=== PATIENT | female | born 1965 | race Hispanic/Latino ===

== ENCOUNTER 2017-08-27 09:55 | Outpatient (CLI) | payer BC ==
--- NOTE | 2017-08-28 10:44 | Mammography Report ---
BILATERAL DIGITAL AUGMENTED SCREENING MAMMOGRAM with CAD: 08/27/17 09:55:00 CLINICAL: Routine screening. COMPARISON:06/03/16 FINDINGS: Screening views with and without implant displacement demonstrate heterogeneously dense breasts, which may obscure small masses. Bilateral calcifications with benign morphology. 2 biopsy clips in the inner left breast and stable asymmetry at one of the clips. No mass, architectural distortion or suspicious calcifications. Intact subpectoral implants. IMPRESSION: No mammographic evidence of malignancy. BI-RADS CATEGORY: 2 -- Benign RECOMMENDATION: Routine mammographic screening in one year. ACR BI-RADS MAMMOGRAPHIC CODES: 0 = Needs additional imaging evaluation; 1 = Negative; 2 = Benign; 3 = Probably benign; 4 = Suspicious; 5 = Malignant; 6 = Known biopsy-proven malignancy COMMENT: 1. Dense breast tissue, i.e., adenosis, fibrocystic changes, etc., may obscure an underlying neoplasm. 2. Approximately 10% of cancers are not detected with mammography. 3. A negative mammography report should not delay biopsy if a clinically suspicious mass is present. COMMENT: Patient follow-up letters are generated via our [employer] application.
== END 2017-08-27 09:56 | disposition home or self-care (01) ==
LOC: SPVWC 09:55
PROVIDERS: ATTEND Obstetrics & Gynecology
DX: Z12.31 Encounter for screening mammogram for malignant neoplasm of breast (principal); Z98.82 Breast implant status
CPT/HCPCS: 77067; G0202

== ENCOUNTER 2019-06-14 06:47 | Day surgery (SDC) | payer BC ==
[2019-06-14] MEDS ORDERED: WATER FOR IRRIG STERILE 250 ML BOTTLE IR ONE (07:20)
[2019-06-14] MEDS ORDERED: WATER FOR IRRIG STERILE 1,000 ML BOTTLE ONE (07:20)
--- NOTE | 2019-06-14 07:53 | Anesthesia Consultation ---
Anesthesia Consult and Med Hx Date of service: 06/14/19 - Airway Anesthetic Teeth Evaluation: Good ROM Head & Neck: Adequate Mental/Hyoid Distance: Adequate Mallampati Class: Class III Intubation Access Assessment: Possibly Difficult - Pre-Operative Health Status ASA Pre-Surgery Classification: ASA2 Proposed Anesthetic Plan: MAC - Pulmonary Hx Smoking: Yes (1/2 pack x 25 years, quit 2011) - Central Nervous System Hx Back Pain: Yes (s/p cervical fusion, lower back pain, reumatoid arthritis) - Other Systems Hx Cancer: Yes (h/o colon polyp positive for CA (2014))
--- NOTE | 2019-06-14 07:54 | Anesthesia Day of Surgery ---
Anesthesia Day of Surgery - Day of Surgery Patient Examined: Yes Patient H&P Reviewed: Yes Patient is NPO: Yes
[2019-06-14] MEDS ORDERED: SODIUM CHLORIDE 0.9% 1000 ML 1,000 ML IV SCH (08:00)
[2019-06-14] MEDS ORDERED: LIDOCAINE MPF (2%) 20 MG/1 ML VIAL 5 ML ONE (08:00)
[2019-06-14] MEDS ORDERED: PROPOFOL 200 MG/20 ML VIAL IV ONE ×2 (08:38→08:47)
--- NOTE | 2019-06-14 08:59 | Procedure Note ---
Date of procedure: 06/14/19 Pre-op diagnosis: H/O Colon Polyps Post-op diagnosis: other (No Colon Polyps now/ Few,Scattered Diverticular Disease (Left Colon and Cecum)/Mild to Moderate Internal Hemorrhoid) Procedure: Colonoscopy Anesthesia: MAC Surgeon: SONALI KIRBY Estimated blood loss: none Pathology: none Condition: stable Disposition: same day (Encourage fiber intake and resume home medication and follow up in 1 to 2 weeks ([phone]).)
--- NOTE | 2019-06-14 09:13 | Operative Report ---
PROCEDURE: Colonoscopy. INDICATIONS: A 54-year-old white female with a prior history of colon polyp, history of esophagitis, gastritis, diverticular disease with a repeat colonoscopy done to make sure there was not any recurrence of any polyps. Last colonoscopy was done several years ago. DESCRIPTION OF PROCEDURE: Procedure was done after getting informed consent with MAC anesthesia. Initial rectal exam was unremarkable. Instrument was passed through the rectum onto the cecum, which was identified with the ileocecal valve and the appendiceal orifice. Visualization was fair to good. The scope was retroflexed in the cecum and no additional pathology was noted. The cecum did show a few scattered diverticula in the proximal colon. The remaining part of the cecum, ascending colon, transverse colon showed normal mucosa. There were a few minor scattered diverticula noted in the left colon and the rectum showed mild to moderate internal hemorrhoid. On the retroverted view, there were no polyps noted and no evidence of any colitis. No biopsies done. No bleeding associated with the procedure. No complications associated with the procedure. ASSESSMENT: History of colon polyps, no colon polyps at present. Scattered diverticular disease, mild to moderate internal hemorrhoid. PLAN: To encourage the patient to take fiber supplements. Resume home medication. Follow up in the office in 1-2 weeks' time. JOB# [id number] LUIS A/FIFI
[2019-06-14 09:30] VITALS: BP 101/62
--- NOTE | 2019-06-14 14:23 | Post Anesthesia Evaluation ---
- Post Anesthesia Evaluation Patient Participated: Yes Airway Patent: Yes Stable Respiratory Function: Yes Nausea/Vomiting: No Temp > 96.8F: Yes Pain Manageable: Yes Adequeate Hydration: Yes Anesthesia Complications: No Block Receding Appropriately: Not Applicable Patient on Ventilator: No
== END 2019-06-14 06:48 | disposition home or self-care (01) ==
LOC: GIO 06:47
DX: Z12.11 Encounter for screening for malignant neoplasm of colon (principal); K64.8 Other hemorrhoids; K57.30 Diverticulosis of large intestine without perforation or abscess without bleeding; M06.9 Rheumatoid arthritis, unspecified; Z86.010 Personal history of colon polyps; Z79.899 Other long term (current) drug therapy; Z87.891 Personal history of nicotine dependence; Z90.49 Acquired absence of other specified parts of digestive tract; Z98.82 Breast implant status; Z85.038 Personal history of other malignant neoplasm of large intestine; Z98.891 History of uterine scar from previous surgery; Z98.890 Other specified postprocedural states
CPT/HCPCS: 45378; J2704; J7030